=== PATIENT | female | born 1945 | race Caucasian/White ===

== ENCOUNTER 2018-12-17 09:47 | Emergency (ER) | payer BC, OTHER ==
--- OUTSIDE RECORDS SUMMARY | 2018-12-17 09:49 | XMS REPORT | Continuity of Care Document ---
:1945 Author Organization Interface Problems Problem Status Onset Classification Date Comments Source Date Reported M25.572 - Active OPID PAIN IN LEFT 5 [place] ANKLE AND JOINTS Encounter for 02/11/2018 OP [facility] screening [place] mammogram for malignant neoplasm of breast Medications Medication Details Route Status Patient Ordering Order Source Instructions Provider Date Allergies, Adverse Reactions, Alerts Substance Category Reaction Severity Reaction Status Date Comments Source type Reported Immunizations Immunization Date Given Site Status Last Updated Comments Source Results Order Results Value Reference Date Interpretation Comments Source Name Range Breast Breast 02/02 - [facility] Mammo Mammo /2017 - [place] Scrn BRUCE Scrn BRUCE w gorge w gorge incl CAD incl CAD Read by: Peter Alvarez MD, MA, MA Dictated Date/time: 02/02/18 12:30 BILATERAL DIGITAL SCREENING MAMMOGRAM 3D/2D WITH CAD: 02/02/2018 Electronically Signed by: Peter Alvarez MD 02/02/18 12 :30 FINAL REPORT CLINICAL: /Screen. Current study was evaluated with a Computer Aided Detection (CAD) system. COMPARISON:Comparison is made to exams dated: 12/30/2016 mammogram, 2015 mammogram, 12/21/2014 mammogram, 12/08/2013 mammogram - [facility], and 10/19/2012 mammogram - [facility] Outpatient Imaging Department. TECHNIQUE: Digital Breast Tomosynthesis was performed and utilized for Interpretation. Current study was also evaluated with a Computer Aided Detection (CAD) system. FINDINGS: The tissue of both breasts is heterogeneously dense, which could obscure detection of small masses. No significant masses, calcifications, or other findings are seen in either breast. There has been no significant interval change. IMPRESSION: NEGATIVE RECOMMENDATION:There is no mammographic evidence of malignancy. A 1 year screening mammogram is recommended.(02/03/2019) This exam was interpreted at [id number] for [facility]. Professional services are provided by the [facility] of Diagnostic Imaging. Peter Alvarez M.D. ks/penrad:02/02/2018 12:30:15 Customer Response Representative(s): RT Rosa(Jeni)(M), [facility] letter sent: BI-RADS 1/2 Mammogram BI-RADS: 1 Negative Breast Breast - BREAST MAMMO SCRN BRUCE W GORGE INCL CAD MA 12/30 - [facility] Mammo Mammo /2016 - [place] Scrn BRUCE Scrn BRUCE BILATERAL DIGITAL SCREENING MAMMOGRAM 3D/2D WITH CAD: 2016 w gorge w gorge incl CAD incl CAD CLINICAL: Screening. Read by: Karl Noland MD, MA [place] Dictated Date/time: 12/31/16 09:07 Electronically Signed by: Karl Noland MD 12/31/16 09:07 FINAL REPORT 2D digital mammographic images and 3D digital tomosynthesis images were obtained in the CC and MLO projections. Current study was evaluated with a Computer Aided Detection (CAD) system. Comparison is made to exams dated: 12/27/2015 mammogram, 12/21/2014 mammogram, 12/08/2013 mammogram - [facility], 10/19/2012 mammogram, 10/16/2011 mammogram and 09/18/2010 mammogram - [facility] Outpatient Imaging Department. The tissue of both breasts is heterogeneously dense, which could obscure detection of small masses. Stable benign appearing asymmetries are seen in both breasts. No significant masses, calcifications, or other findings are seen in either breast. There has been no significant interval change. IMPRESSION: BENIGN There is no mammographic evidence of malignancy. A 1 year screening mammogram is recommended. Professional services are provided by the [facility]. Karl Noland M.D. rsl/penrad:12/31/2016 09:07:52 Customer Response Representative: Clarissa Reinoso [facility] This exam was dictated and interpreted by [id number] for [facility]. letter sent: Bilateral Benign Mammogram BI-RADS: 2 Benign Digital Digital - DIGITAL MAMMO SCREEN BRUCE MA W GORGE 12/26 - [facility] Mammo Mammo - [place] Screen Screen BILATERAL DIGITAL SCREENING MAMMOGRAM 3D/2D WITH CAD: 2015 Bruce MA w Bruce MA w gorge gorge CLINICAL: Routine. Read by: Peter Alvarez MD Dictated Date/time: 12/27/15 12:03 Electronically Signed by: Peter Alvarez MD 12/27/15 12:03 FINAL REPORT 2D digital mammographic images and 3D digital tomosynthesis images were obtained in the CC and MLO projections. Current study was evaluated with a Computer Aided Detection (CAD) system. Comparison is made to exams dated: 12/21/2014 mammogram, 12/08/2013 mammogram - [facility], 10/19/2012 mammogram, 10/16/2011 mammogram and 09/18/2010 mammogram - [facility] Outpatient Imaging Department. The tissue of both breasts is heterogeneously dense, which could obscure detection of small masses. No significant masses, calcifications, or other findings are seen in either breast. There has been no significant interval change. IMPRESSION: NEGATIVE There is no mammographic evidence of malignancy. A 1 year screening mammogram is recommended. Peter Alvarez M.D. ks/penrad:12/27/2015 12:03:04 Customer Response Representative: Jaye MACARIO(Jeni)(Grace), [facility] This exam was dictated and interpreted by [id number] for [facility]. letter sent: Normal [place] Mammogram BI-RADS: 1 Negative Bone / Bone / EXAM: Three-phase bone scan with SPECT-CT. 08/02 - OPID joint - [place] SPECT NM SPECT NM This report was dictated by a Plastic Mould Maker/ Fellow. I have personally reviewed the images as well as the Resident's interpretation and agree with the findings. DATE: August 02, 2015 at 0956 hours. Read by: Richard Momin MD Resident: Richard Momin MD Dictated Date/time: 08/02/15 16:28 Electronically Signed by: April Unger MD 08/02/15 17:27 FINAL REPORT INDICATION: Left ankle pain. Additional information: Patient had left ankle prosthesis in 2012, now with medial malleolus pain. Recent CT reportedly showed hardware shift. TECHNIQUE: After intravenous administration of 23.1 mCi of technetium 99m MDP, dynamic blood flow and immediate static blood pool images of the bilateral lower extremities followed by whole-body delayed images were obtained. FINDINGS: There is markedly increased diffuse blood flow and blood pool around the left ankle. Delayed images also demonstrate markedly increased tracer uptake diffusely in the left ankle, but most prominent at t he medial malleolus and the talus immediately below the prosthesis. Focal moderate increased tracer uptake is also noted at the left first metatarsophalangeal joint likely degenerative arthritis. The rest of tracer distribution in the body is physiologic. IMPRESSION: Markedly increased tracer uptake in the left ankle diffusely, but more prominently at the medial malleolus. This can be seen in the setting of new trauma to the ankle, local inflammation from hardware l oosening, or less likely infection. If there is clinical concern for infection, additional study with tagged white blood cell scan may be considered. Bone Bone EXAM: Three-phase bone scan with SPECT-CT. 08/02 - OPID scan 3 scan - [place] phase NM phase NM This report was dictated by a Plastic Mould Maker/ Fellow. I have personally reviewed the images as well as the Resident's interpretation and agree with the findings. DATE: August 02, 2015 at 0956 hours. Read by: Richard Momin MD Resident: Richard Momin MD Dictated Date/time: 08/02/15 16:28 Electronically Signed by: April Unger MD 08/02/15 17:27 FINAL REPORT INDICATION: Left ankle pain. Additional information: Patient had left ankle prosthesis in 2012, now with medial malleolus pain. Recent CT reportedly showed hardware shift. TECHNIQUE: After intravenous administration of 23.1 mCi of technetium 99m MDP, dynamic blood flow and immediate static blood pool images of the bilateral lower extremities followed by whole-body delayed images were obtained. FINDINGS: There is markedly increased diffuse blood flow and blood pool around the left ankle. Delayed images also demonstrate markedly increased tracer uptake diffusely in the left ankle, but most prominent at t he medial malleolus and the talus immediately below the prosthesis. Focal moderate increased tracer uptake is also noted at the left first metatarsophalangeal joint likely degenerative arthritis. The rest of tracer distribution in the body is physiologic. IMPRESSION: Markedly increased tracer uptake in the left ankle diffusely, but more prominently at the medial malleolus. This can be seen in the setting of new trauma to the ankle, local inflammation from hardware l oosening, or less likely infection. If there is clinical concern for infection, additional study with tagged white blood cell scan may be considered. Bone Bone - Bone Density DXA Dual Energy MA 12/21 - [facility] Density Density /2014 - [place] DXA Dual DXA Dual BONE DENSITY EVALUATION: 12/21/2014 Energy Energy MA MA Read by: Betty Mckeon DO Dictated Date/time: 12/21/14 15:42 CLINICAL DATA: Post menopausal. Electronically Signed by: Betty Mckeon DO 12/21/14 15:42 FINAL REPORT RISK FACTORS: race. FINDINGS: Bone density evaluation was performed 12/21/2014 on the AP L1-L4 region of spine using Lunar Dual Energy X-Ray Absorptiometry. The BMD average for the exam is 1.561 g/cm2. The T-score is 3.00 and the Z -score is 4.60. This matches the World Health Organization's criteria for normal bone density and places the patient within normal limits of fracture risk. An additional bone density evaluation was performed 12/21/2014 on the right femur neck using Lunar Dual Energy X-Ray Absorptiometry. The BMD average for the exam is 0.987 g/cm2. The T-score is -0.40 an d the Z-score is 1.30. This matches the World Health Organization's criteria for normal bone density and places the patient within normal limits of fracture risk. An additional bone density evaluation was performed 12/21/2014 on the right hip using Lunar Dual Energy X-Ray Absorptiometry. The BMD average for the exam is 1.124 g/cm2. The T-score is 0.90 and the Z- score is 2.30. This matches the World Health Organization's criteria for normal bone density and places the patient within normal limits of fracture risk. An additional bone density evaluation was performed 12/21/2014 on the left femur neck using Lunar Dual Energy X-Ray Absorptiometry. The BMD average for the exam is 0.904 g/cm2. The T-score is -1.00 and the Z-score is 0.70. This matches the World Health Organization's criteria for normal bone density and places the patient within normal limits of fracture risk. An additional bone density evaluation was performed 12/21/2014 on the left hip using Lunar Dual Energy X-Ray Absorptiometry. The BMD average for the exam is 1.000 g/cm2. The T-score is -0.10 and the Z- score is 1.30. This matches the World Health Organization's criteria for normal bone density and places the patient within normal limits of fracture risk. IMPRESSION: BONE DENSITY WITHIN NORMAL LIMITS Patient is at normal risk for fracture. This exam was dictated and interpreted by [id number] for LOAN Gillespie. Dr. Betty damon/penrad:12/21/2014 15:42:15 Customer Response Representative: Valerio Devine RT(R)(M), [facility] Digital Digital - DIGITAL MAMMO SCREEN BRUCE MA W GORGE 12/21 - [facility] Mammo Mammo /2014 - [place] Screen Screen BILATERAL DIGITAL SCREENING MAMMOGRAM 3D/2D WITH CAD: 2014 Bruce MA w Bruce MA w gorge gorge CLINICAL: Routine. Read by: Ian Lechuga MD Dictated Date/time: 12/21/14 14:31 Electronically Signed by: Ian Lechuga MD 12/21/14 14:31 FINAL REPORT 2D digital mammographic images and 3D digital tomosynthesis images were obtained in the CC and MLO projections. Current study was evaluated with a Computer Aided Detection (CAD) system. Comparison is made to exams dated: 09/18/2010 mammogram, 10/16/2011 mammogram, 10/19/2012 mammogram - [facility] Outpatient Imaging Department and 12/08/2013 mammogram - [facility]. The tissue of both breasts is heterogeneously dense, which could obscure detection of small masses. No significant masses, calcifications, or other findings are seen in either breast. There has been no significant interval change. IMPRESSION: BENIGN There is no mammographic evidence of malignancy. A 1 year screening mammogram is recommended. Ian Lechuga M.D. [facility]/penrad:12/21/2014 14:31:09 Customer Response Representative: Valerio MACARIO(R)(M), [facility] This exam was dictated and interpreted by [id number] for Jacki Perales. letter sent: Normal exam Mammogram BI-RADS: 2 Benign Vital Signs Vital Sign Value Date Comments Source Encounters Location Location Encounter Encounter Reason Attending ADM DC Status Source Details Type Number For Provider Date Date Visit [facility] Outpt Diag [id number] Shakeel Oden 12/21 12/22 OP Outpatient Services /2014 [facility] Outpt Diag [id number] 08/02 08/03 OPID Outpatient Services [facility] /2014 [facility] Outpt Diag [id number] Shakeel Oden 12/26 12/27 OP Outpatient Services /2015 [facility] Outpt Diag [id number] Shakeel Oden 12/30 12/31 OP Outpatient Services /2016 [facility] Outpt Diag [id number] Shakeel Oden 02/02 02/03 OP Outpatient Services /2017 [facility] Procedures Procedure Code Date Perfomer Comments Source
--- OUTSIDE RECORDS SUMMARY | 2018-12-17 09:50 | XMS REPORT | Summary of Care ---
:1945 Author Care Team Providers Name Role Phone Ayan Ponce Primary Care Physician Encounter HQ Abidar_clarachucky([facility]) [id number] Date(s): 12/21/14 - 12/21/14 [facility] Outpatient Imaging - [facility] Discharge Disposition: Home Physician Attending: Shakeel Oden MD Vital Signs No data available for this section Problem List No data available for this section Allergies, Adverse Reactions, Alerts No data available for this section Medications No data available for this section Results No data available for this section Immunizations No data available for this section Procedures No data available for this section Social History No data available for this section Assessment and Plan No data available for this section
--- OUTSIDE RECORDS SUMMARY | 2018-12-17 09:50 | XMS REPORT | Summary of Care ---
:1945 Author Organization [facility] Address Unavailable , Encounter HQ Marty_deyanira([facility]) [id number] Date(s): 02/02/18 - 02/02/18 [facility] Outpatient [facility] Discharge Disposition: Home or Self Care Attending Physician: Shakeel Oden MD Vital Signs No data [...]
--- OUTSIDE RECORDS SUMMARY | 2018-12-17 09:50 | XMS REPORT ---
:1945 Author [facility] Address [address] [place] [address] Care Team Providers Name Role Phone Unavailable Unavailable Unavailable Payers Payer Name Policy Type Policy Number Effective Date Expiration Date Problems This patient has no known problems. Allergies, Adverse Reactions, Alerts Allergy Name Allergy Status Severity Reaction(s) Onset Inactive Treating Comments Type Date Date Clinician BEES DA Active SV 2017-12 00:00:0 0 ketoprofen DA Active MD 2017-07 00:00:0 0 Medications This patient has no known medications.
--- OUTSIDE RECORDS SUMMARY | 2018-12-17 09:50 | XMS REPORT | Summary of Care ---
:1945 Author Organization [facility] Outpatient Imaging [facility] Address Unavailable , Encounter Marty_deyanira([facility]) [id number] Date(s): 02/02/18 - 02/02/18 [facility] Outpatient Imaging [facility] Encounter Diagnosis Encounter for screening mammogram for malignant neoplasm of breast (Final) - Discharge Disposition: Home or Self Care Attending [...]
--- OUTSIDE RECORDS SUMMARY | 2018-12-17 09:50 | XMS REPORT | Summary of Care ---
:1945 Author Organization [facility] Outpatient Imaging [facility] Encounter HQ Andrewntr_deyanira([facility]) [id number] Date(s): 12/30/16 - 12/30/16 [facility] Outpatient Imaging - [facility] Discharge Disposition: Home or Self Care Attending [...]
--- OUTSIDE RECORDS SUMMARY | 2018-12-17 09:50 | XMS REPORT | Summary of Care ---
:1945 Author Organization [facility] Outpatient Imaging [place] Address [address] [place] [phone] Care Team Providers Name Role Phone Ayan Ponce Primary Care Physician Encounter HQ Andrewntr_clarachucky([facility]) [id number] Date(s): 08/02/15 - 08/02/15 [facility] Outpatient Imaging [facility] [facility] [address] [place] [address]- [phone] Discharge Disposition: Home Attending Physician: David Alexandre MD Vital Signs No data available for [...]
--- OUTSIDE RECORDS SUMMARY | 2018-12-17 09:50 | XMS REPORT | Summary of Care ---
:1945 Author Organization [facility] Care Team Providers Name Role Phone Ayan Ponce Primary Care Physician Encounter HQ Encntr_alichucky([facility]) [id number] Date(s): 12/27/15 - 12/27/15 [facility] Outpatient [facility] Discharge Disposition: Home Attending Physician: Shakeel Oden MD Vital Signs [...]
[2018-12-17] MEDS ORDERED: DEXAMETHASONE 4 MG/ML VIAL ONE (11:25)
[2018-12-17] MEDS ORDERED: HYDROCODONE/APAP 10/325 TAB ONE (11:25)
--- NOTE | 2018-12-17 12:00 | RAD REPORT ---
EXAM DESCRIPTION: RAD - Lumbar Spine 3 Views - 12/17/2018 11:38 am CLINICAL HISTORY: LOWER BACK PAIN Radiculopathy COMPARISON: No comparisons FINDINGS: Vertebral body heights appear maintained. No compression fracture noted. Mild anterolisthe sis of L3 on 4 is seen. Prominent degenerative change with vacuum disc degeneration at L4-5 is seen w ith small endplate osteophytes posteriorly.
--- NOTE | 2018-12-17 12:24 | ER ---
Nurse's Notes [facility] Name: Stevo Parks Age: 73 yrs Sex: Female : 1945 Arrival Date: 12/17/2018 Time: 09:50 Bed 23 Private MD: Delfina Castaneda Diagnosis: Radiculopathy, lumbosacral region Presentation: 12/17 10:02 Presenting complaint: Patient states: right hip pain radiating down right leg that aa5 began x 2 days ago. pt denies urinary symptoms. Transition of care: patient was not received from another setting of care. Onset of symptoms was December 2018. Risk Assessment: Do you want to hurt yourself or someone else? Patient reports no desire to harm self or others. Initial Sepsis Screen: Does the patient meet any 2 criteria? No. Patient's initial sepsis screen is negative. Does the patient have a suspected source of infection? No. Patient's initial sepsis screen is negative. Care prior to arrival: None. 10:02 Method Of Arrival: Wheelchair aa5 10:02 Acuity: ALBERT 3 aa5 Historical: - Allergies: 10:04 Orudis; aa5 - PMHx: 10:04 Hyperlipidemia; Hypertension; aa5 - PSHx: 10:03 Hysterectomy; Left ankle replacement; Trocanteric bursa removal; aa5 - Immunization history:: Adult Immunizations up to date, Pneumococcal vaccine is up to date, Flu vaccine is up to date. - Social history:: Smoking status: Patient/guardian denies using tobacco. - Ebola Screening: : No symptoms or risks identified at this time. - Family history:: not pertinent. - Hospitalizations: : No recent hospitalization is reported. Screenin:36 Abuse screen: Denies threats or abuse. Denies injuries from another. Nutritional dm5 screening: No deficits noted. Tuberculosis screening: No symptoms or risk factors identified. Fall Risk None identified. Assessment: 10:36 General: Appears in no apparent distress. uncomfortable, Behavior is calm, cooperative. dm5 Pain: Complains of pain in right hip Pain currently is 4 out of 10 on a pain scale. at worst was 10 out of 10 on a pain scale. Pain began 1 day ago. Is continuous, Aggravated by weight bearing. Neuro: Level of Consciousness is awake, alert, obeys commands, Oriented to person, place, time. Respiratory: Airway is patent Respiratory effort is even, unlabored, Respiratory pattern is regular, symmetrical. Derm: Skin is pink, warm \T\ dry. Vital Signs: 10:04 BP 146 / 70; Pulse 66; Resp 16 S; Temp 97.6(TE); Pulse Ox 95% on R/A; Weight 58.97 kg aa5 (R); Height 5 ft. 2 in. (157.48 cm) (R); Pain 4/10; 12:36 BP 136 / 60; Pulse 55; Resp 16; Temp 98.0; Pulse Ox 96% on R/A; Pain 4/10; dm5 10:04 Body Mass Index 23.78 (58.97 kg, 157.48 cm) aa5 10:04 Pt reports pain is 10/10 with walking aa5 ED Course: 09:50 Patient arrived in ED. mr 09:51 Delfina Castaneda MD is Private Physician. mr 10:02 Arm band placed on. aa5 10:03 Triage completed. aa5 10:35 Maria Elena Mckeon, MEHDI is Primary Nurse. dm5 10:36 Jese Cano MD is Attending Physician. rn 10:36 Patient has correct armband on for positive identification. Adult w/ patient. dm5 11:32 XRAY Lumbar Spine (3 Views) In Process Unspecified. EDMS 12:36 No provider procedures requiring assistance completed. Patient did not have IV access dm5 during this emergency room visit. Administered Medications: 11:00 Drug: [place] 10 mg-325 mg 1 tabs Route: PO; dm5 11:45 Follow up: Response: No adverse reaction; Pain is decreased dm5 11:01 Drug: Decadron 10 mg {Note: due to hip pain and not being able to lay on affected hip, dm5 dose split between right and left deltoid..} Route: IM; Site: right deltoid; 11:45 Follow up: Response: No adverse reaction; Pain is decreased dm5 Outcome: 12:24 Discharge ordered by MD. rn 12:37 Discharged to home via wheelchair. dm5 12:37 Condition: good 12:37 Discharge instructions given to patient, family, Instructed on discharge instructions, follow up and referral plans. medication usage, Demonstrated understanding of instructions, follow-up care, medications. 12:37 Patient left the ED. dm5 Signatures: Dispatcher [employer] Maria Elena Busby RN RN dm5 Kessler, Baylee mr Jese Cano MD MD rn Calderon, MEHDI De Jesus RN aa5
--- NOTE | 2018-12-17 12:24 | EDPHYS ---
Physician Documentation [facility] Name: Stevo Parks Age: 73 yrs Sex: Female : 1945 Arrival Date: 12/17/2018 Time: 09:50 Bed 23 Private MD: Delfina Castaneda ED Physician Jese Cano HPI: 12/17 11:42 This 73 yrs old Female presents to ER via Wheelchair with complaints of Back rn Pain. 11:42 The patient presents with pain that is acute. The symptoms are located in the low back. rn Onset: The symptoms/episode began/occurred yesterday. The pain radiates to the right leg. Associated signs and symptoms: Pertinent negatives: abdominal pain, constipation, dysuria, hematuria, incontinence, numbness, tingling, urinary retention, weakness. Modifying factors: The patient symptoms are alleviated by nothing, the patient symptoms are aggravated by any movement. Severity of symptoms: At their worst the symptoms were mild, in the emergency department the symptoms are unchanged. The patient has not experienced similar symptoms in the past. Reports recently went skiing, no fall or injury, yesterday began with right lower back pain, radiates down right leg, stops about the knee, + chronic atrophy of left calf and leg. No focal swelling or point tenderness. NO bowel/bladder problems.. Historical: - Allergies: 10:04 Orudis; aa5 - PMHx: 10:04 Hyperlipidemia; Hypertension; aa5 - PSHx: 10:03 Hysterectomy; Left ankle replacement; Trocanteric bursa removal; aa5 - Immunization history:: Adult Immunizations up to date, Pneumococcal vaccine is up to date, Flu vaccine is up to date. - Social history:: Smoking status: Patient/guardian denies using tobacco. - Ebola Screening: : No symptoms or risks identified at this time. - Family history:: not pertinent. - Hospitalizations: : No recent hospitalization is reported. ROS: 11:42 Constitutional: Negative for fever, chills, and weight loss, Eyes: Negative for injury, rn pain, redness, and discharge, Neck: Negative for injury, pain, and swelling, Abdomen/GI: Negative for abdominal pain, nausea, vomiting, diarrhea, and constipation, Back: Negative for injury, + right lower back pain MS/Extremity: Negative for injury and deformity, Skin: Negative for injury, rash, and discoloration, Neuro: Negative for headache, weakness, numbness, tingling, and seizure. Exam: 11:42 Constitutional: This is a well developed, well nourished patient who is awake, alert, rn and in no acute distress. Back: No spinal tenderness. No costovertebral tenderness. + tenderness right perispinal/lumbar region. Skin: Warm, dry with normal turgor. Normal color with no rashes, no lesions, and no evidence of cellulitis. MS/ Extremity: Pulses equal, no cyanosis. Neurovascular intact. Painful ROM right leg. Neuro: Awake and alert, GCS 15, oriented to person, place, time, and situation. Cranial nerves II-XII grossly intact. Motor strength 5/5 in all extremities. Sensory grossly intact. Cerebellar exam normal. Normal gait. Vital Signs: 10:04 BP 146 / 70; Pulse 66; Resp 16 S; Temp 97.6(TE); Pulse Ox 95% on R/A; Weight 58.97 kg aa5 (R); Height 5 ft. 2 in. (157.48 cm) (R); Pain 4/10; 12:36 BP 136 / 60; Pulse 55; Resp 16; Temp 98.0; Pulse Ox 96% on R/A; Pain 4/10; dm5 10:04 Body Mass Index 23.78 (58.97 kg, 157.48 cm) aa5 10:04 Pt reports pain is 10/10 with walking aa5 MDM: 10:36 Patient medically screened. rn 11:42 Differential diagnosis: Fatigue sprain, radiculopathy, disc bulge, muscle spasm. Data rn reviewed: vital signs, nurses notes. 12:24 Counseling: I had a detailed discussion with the patient and/or guardian regarding: the rn historical points, exam findings, and any diagnostic results supporting the discharge/admit diagnosis, radiology results, the need for outpatient follow up, to return to the emergency department if symptoms worsen or persist or if there are any questions or concerns that arise at home. Response to treatment: the patient's symptoms have mildly improved after treatment, and as a result, I will discharge patient. Special discussion: I discussed with the patient/guardian in detail that at this point there is no indication for admission to the hospital. It is understood, however, that if the symptoms persist or worsen the patient needs to return immediately for re-evaluation. 12/17 10:42 Order name: XRAY Lumbar Spine (3 Views); Complete Time: 12:08 rn Administered Medications: 11:00 Drug: [place] 10 mg-325 mg 1 tabs Route: PO; dm5 11:45 Follow up: Response: No adverse reaction; Pain is decreased dm5 11:01 Drug: Decadron 10 mg {Note: due to hip pain and not being able to lay on affected hip, dm5 dose split between right and left deltoid..} Route: IM; Site: right deltoid; 11:45 Follow up: Response: No adverse reaction; Pain is decreased dm5 Disposition: 12/17/18 12:24 Discharged to Home. Impression: Radiculopathy, lumbosacral region. - Condition is Stable. - Discharge Instructions: Lumbosacral Radiculopathy. - Prescriptions for Tylenol- Codeine #3 300-30 mg Oral Tablet - take 1 tablet by ORAL route every 6 hours As needed; 20 tablet. Cyclobenzaprine 10 mg Oral Tablet - take 1 tablet by ORAL route every 8 hours As needed; 20 tablet. Medrol ([place]) 4 mg Oral Tablets, Dose Pack - take 1 tablet by ORAL route as directed - follow package instructions; 1 packet. - Medication Reconciliation Form, Thank You Letter, Antibiotic Education, Prescription Opioid Use form. - Follow up: Private Physician; When: As needed; Reason: Recheck today's complaints, Re-evaluation by your physician. - Problem is new. - Symptoms have improved. Signatures: Dispatcher [employer] EDMaria Elena Hudson RN RN dm5 Jese Cano MD MD rn Calderon, Audri, RN RN aa5 Corrections: (The following items were deleted from the chart) 12:37 12:24 12/17/2018 12:24 Discharged to Home. Impression: Radiculopathy, lumbosacral dm5 region. Condition is Stable. Forms are Medication Reconciliation Form, Thank You Letter, Antibiotic Education, Prescription Opioid Use. Follow up: Private Physician; When: As needed; Reason: Recheck today's complaints, Re-evaluation by your physician. Problem is new. Symptoms have improved. rn
== END 2018-12-17 12:37 | disposition home or self-care (01) ==
LOC: ER 09:47
DX: M54.17 Radiculopathy, lumbosacral region (principal); E78.5 Hyperlipidemia, unspecified; I10 Essential (primary) hypertension
CPT/HCPCS: 72100; 96372; 99283